=== PATIENT | female | born 1955 ===

== ENCOUNTER 2023-01-12 09:34 | Emergency (ER) | payer MEDICARE ==
[~2023-01-12] VITALS: Ht 175.3 cm; Wt 95.0 kg
[2023-01-12 09:51] VITALS: BP 155/68
--- NOTE | 2023-01-12 10:19 | NUR ---
EYE CART & TONOMETER AT BESIDE WITH
[2023-01-12] MEDS ORDERED: proparacaine 0.5% ophthalmic drops 15ml EACHEYE ONE (10:20)
[2023-01-12] MEDS ORDERED: GENT5DRO4 LEFTEYE (10:55)
== END 2023-01-12 11:10 | disposition home or self-care (01) ==
LOC: ER 09:36
DX: S05.02XA Injury of conjunctiva and corneal abrasion without foreign body, left eye, initial encounter (principal); Z88.2 Allergy status to sulfonamides; X58.XXXA Exposure to other specified factors, initial encounter; Y93.89 Activity, other specified; Y92.89 Other specified places as the place of occurrence of the external cause; Y99.8 Other external cause status
CPT/HCPCS: 99283